=== PATIENT | male | born 2000 | race Caucasian/White ===

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

== ENCOUNTER 2020-02-26 12:48 | Emergency (ER) | payer BC ==
[2020-02-26 13:03] VITALS: BP 120/76
--- NOTE | 2020-02-26 13:29 | EDM.PDOC ---
ED HPI GENERAL MEDICAL PROBLEM - General Chief Complaint: Lower Extremity Injury/Pain Stated Complaint: HURT RT KNEE Time Seen by Provider: 02/26/20 12:50 Source of Information: Reports: Patient History Limitations: Reports: No Limitations - History of Present Illness INITIAL COMMENTS - FREE TEXT/NARRATIVE: 20-year-old male presents with right knee pain yesterday. She was playing basketball and landed on his right knee awkwardly and felt a pop, with acute pain. Pain is moderate, constant, radiates to the posterior calf and hamstrings, exacerbated with range of motion and weightbearing. Improved with immobilization. He has not been able to bear weight since. ROS: A 10-point review of systems, other than pertinent positives and negatives as stated per HPI, is otherwise negative Past medical history: No additional pertinent history Past Surgical history: No additional pertinent history Social history: No additional pertinent history Family history: No additional pertinent history PHYSICAL EXAM General: AOx4, GCS = 15, moderate distress HEENT: dry mucous membrane Neck: supple, no meningismus, no Kernig or Brudzinski Cardiac: S1S2 RRR Respiratory: CTAB, no crackles or rales, no wheezing Abdomen: Soft, nontender, no rebound or guarding, nondistended, no pulsatile mass. Back: nontender Musculoskeletal: NVI distally, no deformity, right knee joint line tenderness, with maximal tenderness to the medial joint line, negative Francois/anterior drawer sign/posterior drawer sign. Pain with valgus stress test. nml extensor mechanism. Neuro: No focal deficits Right knee Pain Score (Numeric/FACES): 9 - Related Data Allergies Allergy/AdvReac Type Severity Reaction Status Date / Time No Known Allergies Allergy Verified 02/26/20 13:01 Home Meds: Home Meds Naproxen [Naprosyn] 500 mg PO Q12HR #20 tab 02/26/20 [Rx] Past Medical History HEENT History: Reports: None Cardiovascular History: Reports: None Respiratory History: Reports: None Gastrointestinal History: Reports: None Genitourinary History: Reports: None Musculoskeletal History: Reports: None Neurological History: Reports: None Psychiatric History: Reports: Suicide Attempt Endocrine/Metabolic History: Reports: None Hematologic History: Reports: None Oncologic (Cancer) History: Reports: None Dermatologic History: Reports: None - Infectious Disease History Infectious Disease History: Reports: None - Past Surgical History HEENT Surgical History: Reports: Other (See Below) Social & Family History - Family History Family Medical History: Noncontributory - Tobacco Use Smoking Status *Q: Current Every Day Smoker Years of Tobacco use: 6 Packs/Tins Daily: 1 - Caffeine Use Caffeine Use: Reports: Coffee, Energy Drinks, Soda, Tea - Recreational Drug Use Recreational Drug Use: No Review of Systems - Review of Systems Review Of Systems: Comprehensive ROS is negative, except as noted in HPI. ED EXAM, GENERAL - Physical Exam Exam: See Below (see dictation) ED TRAUMA EXTREMITY PROCEDURES - Splinting Right Lower Extremity Pre-Procedure NV Status: Normal Post-Procedure NV Status: Normal Splint Design: Knee Immobilizer Applied & Form Fitted By: Nurse Provider Post-Splint Application NV Check: NV Status Normal, Good Position Complications: No Course - Vital Signs Last Recorded V/S: Last Vital Signs Temp 97.4 F 02/26/20 14:30 Pulse 68 02/26/20 14:30 Resp 18 02/26/20 14:30 BP 120/76 02/26/20 13:01 Pulse Ox 100 02/26/20 14:30 - Orders/Labs/Meds Orders: Active Orders 24 hr Category Date Time Status DME for Discharge [COMM] Stat Oth 02/26/20 13:29 Ordered - Re-Assessments/Exams Free Text/Narrative Re-Assessment/Exam: 02/26/20 13:31 Patient sustained a possible avulsion injury of the posterior tibial plateau. I ordered a knee immobilizer and crutches for the purpose of immobilization, placed by RN under my supervision with normal neurovascular function and soft compartments after placement. Patient will need to use it for 1 week, until their follow-up evaluation with orthopedics in 3-7 days. Patient voices understanding of follow-up and splint care which was reviewed verbally. After treatments and observation in the ER, patient improved clinically and is currently stable for discharge. I performed a repeat exam and did not appreciate new abnormal findings. Patient exhibits normal vital signs. I advised the patient to return to the ER for reevaluation if symptoms worsened, including fever, worsening pain, or any other worrisome symptoms. I instructed the patient to follow up with their orthopedics within 3-5 days. MEDICAL DECISION MAKING: I reviewed the patients past medical records, lab and radiographic findings. I discussed the case with the patient. My differential diagnosis included: The affected extremity demonstrated good distal perfusion, warm, pink, cap refill <2 seconds, compartments soft, pulses equal in both extremities. Patient understands to return immediately for worsening pain, swelling, fever, numbness/tingling or other concerns and to f/u with orthopedic within 3-5 days. Departure - Departure Time of Disposition: 14:10 Disposition: Home, Self-Care 01 Condition: Good Clinical Impression: Sprain of knee, Ligament tear of lower extremity - Discharge Information *PRESCRIPTION DRUG MONITORING PROGRAM REVIEWED*: Not Applicable *COPY OF PRESCRIPTION DRUG MONITORING REPORT IN PATIENT SHANA: Not Applicable Prescriptions: Naproxen [Naprosyn] 500 mg PO Q12HR #20 tab Instructions: Crutch Use, Adult, [id number], How to Use Cold Therapy, [id number], Elastic Bandage and RICE Therapy, How to Use a Knee Immobilizer, [id number] Referrals: PCP,Not In Area [Primary Care Provider] - Forms: ED Department Discharge Additional Instructions: The need for follow-up, as well as the timing and circumstances, are variable depending upon the specifics of your emergency department visit. If you don't have a primary care physician on staff, we will provide you with a referral. We always advise you to contact your personal physician following an emergency department visit to inform them of the circumstance of the visit and for follow-up with them and/or the need for any referrals to a consulting specialist. The emergency department will also refer you to a specialist when appropriate. This referral assures that you have the opportunity for follow-up care with a specialist. All of these measure are taken in an effort to provide you with optimal care, which includes your follow-up. Under all circumstances we always encourage you to contact your private physician who remains a resource for coordinating your care. When calling for follow-up care, please make the office aware that this follow-up is from your recent emergency room visit. If for any reason you are refused follow-up, please contact the [facility] Emergency Department at and asked to speak to the emergency department charge nurse. [facility] Professional Building [address] [place] [address], [address] [place] [address] Sepsis Event Note (ED) - Evaluation Sepsis Screening Result: No Definite Risk - Focused Exam Vital Signs: Vital Signs Temp Pulse Resp BP Pulse Ox 02/26/20 14:30 97.4 F 68 18 100 02/26/20 13:01 97.3 F 101 H 17 120/76 95 - My Orders Last 24 Hours: My Active Orders 02/26/20 13:29 DME for Discharge [COMM] Stat - Assessment/Plan Last 24 Hours: My Active Orders 02/26/20 13:29 DME for Discharge [COMM] Stat
--- NOTE | 2020-02-26 14:06 | CR ---
Right knee: AP, lateral, tunnel and sunrise patellar views of the right knee were obtained. Comparison: No prior knee exam. Medial and lateral joint compartments are maintained in height. Patellofemoral joint appears normal. No joint effusion is seen. Small bony density is noted off the posterior tibia possibly due to avulsion injury at the attachment of the posterior cruciate ligament. No additional abnormality is appreciated. Impression: 1. Small bony density off the posterior tibia possibly due to avulsion injury at the attachment of the posterior cruciate ligament. This is most likely old. 2. Nothing acute is otherwise seen. Note: Please correlate if patient symptoms suggest internal derangement to indicate MRI. Diagnostic code #3 This report was dictated in MDT
[2020-02-26 14:33] VITALS: PULSE 68
== END 2020-02-26 14:32 | disposition home or self-care (01) ==
LOC: MW.ED 12:48
DX: S83.91XA Sprain of unspecified site of right knee, initial encounter (principal); F17.210 Nicotine dependence, cigarettes, uncomplicated; Y93.67 Activity, basketball
CPT/HCPCS: 73562-26-RT; 73562-RT; 99283; 99283-25

== ENCOUNTER 2020-09-24 16:05 | Emergency (ER) | payer BC ==
--- NOTE | 2020-09-24 16:12 | EDM.PDOC ---
ED HPI GENERAL MEDICAL PROBLEM - General Chief Complaint: Lower Extremity Injury/Pain Stated Complaint: RIGHT KNEE INJURY Time Seen by Provider: 09/24/20 16:06 Source of Information: Reports: Patient History Limitations: Reports: No Limitations - History of Present Illness INITIAL COMMENTS - FREE TEXT/NARRATIVE: HISTORY AND PHYSICAL: History of present illness: Patient is a 20-year-old male who presents to the emergency room with complaints of right knee pain. He states a 6-7 months ago he had a knee injury in which she was seen in the emergency room. He since has had several instances where he feels like his knee will "pop out" and he can typically "put it back in". Over the past few days he has noted some pain with full extension of his knee, he believes his knee is "partly dislocated" although he is able to flex /extend and bear weight/ambulate. Patient denies any fever, chills, headache, change in vision, syncope or near syncope. Denies any chest pain, back pain, shortness of breath or cough. Denies any GI or symptoms. Patient has been eating and drinking appropriately. Review of systems: As per history of present illness and below otherwise all systems reviewed and negative. Past medical history: As per history of present illness and as reviewed below otherwise noncontributory. Surgical history: As per history of present illness and as reviewed below otherwise noncontributory. Social history: See social history for further information Family history: As per history of present illness and as reviewed below otherwise noncontributory. Physical exam: General: Well developed and well nourished 20-year-old male. Alert and orientated x 3. Nontoxic in appearance and in no acute distress. Vital signs are stable and have been reviewed by me. Nursing notes were reviewed. HEENT: Atraumatic, normocephalic, pupils equal and reactive bilaterally, negative for conjunctival pallor or scleral icterus, mucous membranes moist, trachea midline. No drooling or trismus noted. No meningeal signs. No hot potato voice noted. Lungs: Clear to auscultation bilaterally. No wheezes, rales, or rhonchi. Chest nontender. Normal work of breathing, no accessory muscles used. Heart: S1S2, regular rate and rhythm without overt murmur, gallops, or rubs. No JVD. No peripheral edema Abdomen: Soft, nondistended, nontender. Skin: Intact, warm, dry. No lesions or rashes noted. Hematologic: No petechiae or purpra. Mucosa appropriate color and normal nail bed color and refill. Extremities: Atraumatic, moves all extremities per self without difficulty or deficits, negative for cords or calf pain. Pain to left medial knee. No knee instability. Negative drawer test. Strong pedal pulses. No soft tissue swelling. Neurovascular unremarkable. Neuro: Awake, alert, oriented. Cranial nerves II through XII unremarkable. Cerebellum unremarkable. Motor and sensory unremarkable throughout. Exam nonfocal. Psychiatric: Mood and affect are appropriate. Normal thought process. Answering questions appropriately. Notes: *This patient was seen and evaluated during the 2019 SARS-CoV-2 novel coronavirus pandemic period. Community viral transmission is ongoing at time of this encounter and the emergency department is operating under pandemic response procedures. X-ray is negative for acute fracture or dislocation. Mild joint space narrowing medially. I have talked with the patient about today's findings, in addition to providing specific details for plan of care. Patient states he has knee braces and crutches at home, declines wanting any DME today. We discussed the importance of following up with an orthopedic provider for further evaluation of this acute on chronic knee pain that he has had for the past 6 to 7 months. He reassessment at the time of disposition demonstrates that the patient is in no acute distress. The patient is stable for discharge, counseling was provided and we discussed in great detail signs and symptoms that would prompt them to return to the Emergency Department. Medication, follow up and supportive care measures were reviewed and discussed. Voices understanding and is agreeable to plan of care. Denies any further questions or concerns at this time. Diagnostics: Knee x-ray Therapeutics: Toradol Prescription: Diclofenac Impression: Knee pain, right Plan: 1. Rest, ice, elevate the affected extremity. Please wear the splint as directed. 2. Tylenol and/or Ibuprofen as needed for pain management. 3. Follow up with the Orthopedic provider as we discussed. Return to the ED as needed and as discussed. Definitive disposition and diagnosis as appropriate pending reevaluation and review of above. Right knee Pain Score (Numeric/FACES): 5 - Related Data Allergies Allergy/AdvReac Type Severity Reaction Status Date / Time No Known Allergies Allergy Verified 02/26/20 13:01 Home Meds: Home Meds Diclofenac Sodium [Voltaren] 75 mg PO BIDMEALS PRN #30 tab.cr 09/24/20 [Rx] Escitalopram [Lexapro] 09/24/20 [History] buPROPion [Wellbutrin] 09/24/20 [History] lamoTRIgine 09/24/20 [History] Past Medical History HEENT History: Reports: None Cardiovascular History: Reports: None Respiratory History: Reports: None Gastrointestinal History: Reports: None Genitourinary History: Reports: None Musculoskeletal History: Reports: None Neurological History: Reports: None Psychiatric History: Reports: Suicide Attempt Endocrine/Metabolic History: Reports: None Hematologic History: Reports: None Oncologic (Cancer) History: Reports: None Dermatologic History: Reports: None - Infectious Disease History Infectious Disease History: Reports: None - Past Surgical History HEENT Surgical History: Reports: Other (See Below) Social & Family History - Family History Family Medical History: No Pertinent Family History - Caffeine Use Caffeine Use: Reports: Coffee, Energy Drinks, Soda, Tea Review of Systems - Review of Systems Review Of Systems: Comprehensive ROS is negative, except as noted in HPI. ED EXAM, GENERAL - Physical Exam Exam: See Below (See dictation) Course - Vital Signs Last Recorded V/S: Last Vital Signs Temp 98.0 F 09/24/20 16:35 Pulse 68 09/24/20 16:35 Resp 16 09/24/20 16:35 BP 105/68 09/24/20 16:35 Pulse Ox 98 09/24/20 16:35 - Orders/Labs/Meds Meds: Medications Discontinued Medications Generic Name Dose Route Start Last Admin Trade Name Ashley PRN Reason Stop Dose Admin Ketorolac Tromethamine 60 mg 09/24/20 17:22 Toradol IM 09/24/20 17:23 ONETIME ONE Departure - Departure Time of Disposition: 17:44 Disposition: Home, Self-Care 01 Clinical Impression: Knee pain Qualifiers: Chronicity: unspecified Laterality: right Qualified Code(s): M25.561 - Pain in right knee - Discharge Information Prescriptions: Diclofenac Sodium [Voltaren] 75 mg PO BIDMEALS PRN #30 tab.cr PRN Reason: Pain Instructions: Acute Knee Pain, Adult Referrals: PCP,None [Primary Care Provider] - Forms: ED Department Discharge Additional Instructions: The following information is given to patients seen in the emergency department who are being discharged to home. This information is to outline your options for follow-up care. We provide all patients seen in our emergency department with a follow-up referral. The need for follow-up, as well as the timing and circumstances, are variable depending upon the specifics of your emergency department visit. If you don't have a primary care physician on staff, we will provide you with a referral. We always advise you to contact your personal physician following an emergency department visit to inform them of the circumstance of the visit and for follow-up with them and/or the need for any referrals to a consulting specialist. The emergency department will also refer you to a specialist when appropriate. This referral assures that you have the opportunity for follow-up care with a specialist. All of these measure are taken in an effort to provide you with optimal care, which includes your follow-up. Under all circumstances we always encourage you to contact your private physician who remains a resource for coordinating your care. When calling for follow-up care, please make the office aware that this follow-up is from your recent emergency room visit. If for any reason you are refused follow-up, please contact the [facility] Emergency Department at and asked to speak to the emergency department charge nurse. [facility] [address], [facility] [address] [place] [address] Thank you for choosing the [facility] emergency department in [place] for your medical needs today. It was a pleasure caring for you. Today you were seen in the emergency department for knee pain. 1. Rest, ice, elevate the affected extremity. Please wear the splint and use crutches as directed. 2. Tylenol and/or Ibuprofen as needed for pain management. 3. Follow up with the Orthopedic provider as we discussed. Return to the ED as needed and as discussed. Sepsis Event Note (ED) - Focused Exam Vital Signs: Vital Signs Temp Pulse Resp BP Pulse Ox 09/24/20 16:35 98.0 F 68 16 105/68 98
[2020-09-24 16:37] VITALS: BP 105/68; PULSE 68
[2020-09-24] MEDS ORDERED: Ketorolac 60 MG/2 ML SDV IM ONE (17:22)
--- NOTE | 2020-09-24 17:33 | CR ---
INDICATION: Right knee pain, query dislocation. TECHNIQUE: X-ray right knee, 3 views. COMPARISON: X-ray right knee 02/26/2020. FINDINGS: The alignment is normal. There is mild joint space narrowing within the medial compartment with marginal osteophytes. The overlying soft tissues unremarkable. Negative for acute fracture dislocation. No knee joint effusion is seen. IMPRESSION: 1. Negative for acute fracture or dislocation. 2. Mild joint space narrowing medially. Dictated by Carol Poole MD @ Sep 24 2020 5:29PM Signed by Dr. Carol Poole @ Sep 24 2020 5:31PM
== END 2020-09-24 18:03 | disposition home or self-care (01) ==
LOC: MW.ED 16:05
DX: M25.561 Pain in right knee (principal)
CPT/HCPCS: 73562; 96372; 99283; J1885

== ENCOUNTER 2020-10-12 08:55 | Emergency (ER) | payer BC ==
[2020-10-12] MEDS ORDERED: Sodium Chloride 0.9% 1,000 ML IV ONE (09:32)
[2020-10-12] MEDS ORDERED: Ondansetron 4 MG/2 ML SDV IVPUSH ONE (09:33)
--- NOTE | 2020-10-12 09:36 | EDM.PDOC ---
ED HPI GENERAL MEDICAL PROBLEM - General Chief Complaint: Gastrointestinal Problem Stated Complaint: throwing up bleed Time Seen by Provider: 10/12/20 09:34 Source of Information: Reports: Patient History Limitations: Reports: No Limitations - History of Present Illness INITIAL COMMENTS - FREE TEXT/NARRATIVE: Is a 20-year-old male who presents today for vomiting. Patient dates he is been vomiting for the past few years actually but today he saw some bright red blood and now has a dark black color in his vomit. Patient states that he feels he has some stuck in his chest. Patient denies any weakness fever chills or blood in his stool. Patient denies any drugs or alcohol recently. Patient dates that since he was diagnosed with he does also sometimes been having daily dry heaves or vomiting spells. throat Pain Score (Numeric/FACES): 6 - Related Data Allergies Allergy/AdvReac Type Severity Reaction Status Date / Time No Known Allergies Allergy Verified 10/12/20 09:19 Home Meds: Home Meds Diclofenac Sodium [Voltaren] 75 mg PO BIDMEALS PRN #30 tab.cr 09/24/20 [Rx] Escitalopram [Lexapro] 09/24/20 [History] buPROPion [Wellbutrin] 09/24/20 [History] lamoTRIgine 09/24/20 [History] Past Medical History HEENT History: Reports: None Cardiovascular History: Reports: None Respiratory History: Reports: None Gastrointestinal History: Reports: None Genitourinary History: Reports: None Musculoskeletal History: Reports: None Neurological History: Reports: None Psychiatric History: Reports: Addiction, Anxiety, Depression, Suicide Attempt Endocrine/Metabolic History: Reports: None Hematologic History: Reports: None Oncologic (Cancer) History: Reports: None Dermatologic History: Reports: None - Infectious Disease History Infectious Disease History: Reports: None - Past Surgical History HEENT Surgical History: Reports: Other (See Below) Other HEENT Surgeries/Procedures: h/o tubes to bilateral ear Social & Family History - Family History Family Medical History: No Pertinent Family History - Tobacco Use Tobacco Use Status *Q: Former Tobacco User Years of Tobacco use: 6 Packs/Tins Daily: 1 Used Tobacco, but Quit: Yes Month/Year Tobacco Last Used: 2 weeks ago - Caffeine Use Caffeine Use: Reports: Coffee, Energy Drinks, Soda - Recreational Drug Use Recreational Drug Use: Yes Drug Use in Last 12 Months: Yes Recreational Drug Type: Reports: Ecstasy, Marijuana/Hashish, Other (see below) Other Recreational Drug Type: Adderall Recreational Drug Use Frequency: Weekly ED ROS GENERAL - Review of Systems Review Of Systems: See Below Constitutional: Reports: No Symptoms HEENT: Reports: No Symptoms Respiratory: Reports: No Symptoms Cardiovascular: Reports: No Symptoms Endocrine: Reports: No Symptoms GI/Abdominal: Reports: Vomiting : Reports: No Symptoms Musculoskeletal: Reports: No Symptoms Skin: Reports: No Symptoms Neurological: Reports: No Symptoms Psychiatric: Reports: No Symptoms Hematologic/Lymphatic: Reports: No Symptoms Immunologic: Reports: No Symptoms ED EXAM, GI/ABD - Physical Exam Exam: See Below Exam Limited By: No Limitations General Appearance: Alert, WD/WN Eyes: Bilateral: EOMI Respiratory/Chest: No Respiratory Distress, Lungs Clear, Normal Breath Sounds Cardiovascular: Normal Peripheral Pulses, Regular Rate, Rhythm GI/Abdominal Exam: Normal Bowel Sounds, Soft, Non-Tender Extremities: Normal Inspection, Normal Range of Motion Neurological: Alert, Oriented, CN II-XII Intact, Normal Cognition, Normal Gait Course - Vital Signs Last Recorded V/S: Last Vital Signs Temp 98.5 F 10/12/20 12:44 Pulse 121 H 10/12/20 12:44 Resp 18 10/12/20 12:44 BP 129/87 10/12/20 12:44 Pulse Ox 99 10/12/20 12:44 - Orders/Labs/Meds Orders: Active Orders 24 hr Category Date Time Status Communication Order [RC] STAT Care 10/12/20 10:12 Active Labs: Laboratory Tests 10/12/20 10/12/20 10/12/20 Range/Units 09:33 09:33 09:33 WBC 19.38 H (4.0-11.0) K/uL RBC 6.17 H (4.50-5.90) M/uL Hgb 17.8 H (13.0-17.0) g/dL Hct 50.5 H (38.0-50.0) % MCV 81.8 (80.0-98.0) fL MCH 28.8 (27.0-32.0) pg MCHC 35.2 (31.0-37.0) g/dL RDW Std Deviation 37.7 (28.0-62.0) fl RDW Coeff of Damon 13 (11.0-15.0) % Plt Count 331 (150-400) K/uL MPV 9.80 (7.40-12.00) fL Neut % (Auto) 80.8 H (48.0-80.0) % Lymph % (Auto) 11.0 L (16.0-40.0) % [place] % (Auto) 7.9 (0.0-15.0) % Eos % (Auto) 0.2 (0.0-7.0) % Baso % (Auto) 0.1 (0.0-1.5) % Neut # (Auto) 15.7 H (1.4-5.7) K/uL Lymph # (Auto) 2.1 (0.6-2.4) K/uL [place] # (Auto) 1.5 H (0.0-0.8) K/uL Eos # (Auto) 0.0 (0.0-0.7) K/uL Baso # (Auto) 0.0 (0.0-0.1) K/uL Nucleated RBC % 0.0 /100WBC Nucleated RBCs # 0 K/uL D-Dimer, Quantitative < 0.19 (0.0-0.50) mg/L FEU Lactate (0.20-2.00) mmol/L Sodium 138 (136-148) mmol/L Potassium 3.8 (3.5-5.1) mmol/L Chloride 100 (98-107) mmol/L Carbon Dioxide 23.9 (21.0-32.0) mmol/L BUN 14 (7.0-18.0) mg/dL Creatinine 1.4 H (0.8-1.3) mg/dL Est Cr Clr Drug Dosing 93.53 mL/min Estimated GFR (MDRD) > 60.0 ml/min Glucose 105 (74-106) mg/dL Calcium 10.0 (8.5-10.1) mg/dL Phosphorus 2.1 L (2.6-4.7) mg/dL Magnesium 1.8 (1.8-2.4) mg/dL Total Bilirubin 1.1 H (0.2-1.0) mg/dL AST 34 (15-37) IU/L ALT 42 (14-63) IU/L Alkaline Phosphatase 73 (46-116) U/L Creatine Kinase 218 (26-308) U/L Total Protein 8.5 H (6.4-8.2) g/dL Albumin 4.4 (3.4-5.0) g/dL Globulin 4.1 H (2.6-4.0) g/dL Albumin/Globulin Ratio 1.1 (0.9-1.6) Lipase 59 L (73-393) U/L Urine Color Urine Appearance Urine pH (5.0-8.0) Ur Specific [place] (1.001-1.035) Urine Protein (NEGATIVE) mg/dL Urine Glucose (UA) (NEGATIVE) mg/dL Urine Ketones (NEGATIVE) mg/dL Urine Occult Blood (NEGATIVE) Urine Nitrite (NEGATIVE) Urine Bilirubin (NEGATIVE) Urine Ictotest Urine Urobilinogen (<2.0) EU/dL Ur Leukocyte Esterase (NEGATIVE) Urine RBC (0-2/HPF) Urine WBC (0-5/HPF) Ur Epithelial Cells (NONE-FEW) Amorphous Sediment (NEGATIVE) Urine Bacteria (NEGATIVE) Urine Mucus (NONE-MOD) Urine Opiates Screen (NEGATIVE) Ur Oxycodone Screen (NEGATIVE) Urine Methadone Screen (NEGATIVE) Ur Barbiturates Screen (NEGATIVE) Ur Phencyclidine Scrn (NEGATIVE) Ur Amphetamine Screen (NEGATIVE) U Methamphetamines Scrn (NEGATIVE) U Benzodiazepines Scrn (NEGATIVE) U Cocaine Metab Screen (NEGATIVE) U Marijuana (THC) Screen (NEGATIVE) Ethyl Alcohol < 3.0 mg/dL 10/12/20 10/12/20 10/12/20 Range/Units 09:33 12:08 12:08 WBC (4.0-11.0) K/uL RBC (4.50-5.90) M/uL Hgb (13.0-17.0) g/dL Hct (38.0-50.0) % MCV (80.0-98.0) fL MCH (27.0-32.0) pg MCHC (31.0-37.0) g/dL RDW Std Deviation (28.0-62.0) fl RDW Coeff of Damon (11.0-15.0) % Plt Count (150-400) K/uL MPV (7.40-12.00) fL Neut % (Auto) (48.0-80.0) % Lymph % (Auto) (16.0-40.0) % [place] % (Auto) (0.0-15.0) % Eos % (Auto) (0.0-7.0) % Baso % (Auto) (0.0-1.5) % Neut # (Auto) (1.4-5.7) K/uL Lymph # (Auto) (0.6-2.4) K/uL [place] # (Auto) (0.0-0.8) K/uL Eos # (Auto) (0.0-0.7) K/uL Baso # (Auto) (0.0-0.1) K/uL Nucleated RBC % /100WBC Nucleated RBCs # K/uL D-Dimer, Quantitative (0.0-0.50) mg/L FEU Lactate 2.1 H* (0.20-2.00) mmol/L Sodium (136-148) mmol/L Potassium (3.5-5.1) mmol/L Chloride (98-107) mmol/L Carbon Dioxide (21.0-32.0) mmol/L BUN (7.0-18.0) mg/dL Creatinine (0.8-1.3) mg/dL Est Cr Clr Drug Dosing mL/min Estimated GFR (MDRD) ml/min Glucose (74-106) mg/dL Calcium (8.5-10.1) mg/dL Phosphorus (2.6-4.7) mg/dL Magnesium (1.8-2.4) mg/dL Total Bilirubin (0.2-1.0) mg/dL AST (15-37) IU/L ALT (14-63) IU/L Alkaline Phosphatase (46-116) U/L Creatine Kinase (26-308) U/L Total Protein (6.4-8.2) g/dL Albumin (3.4-5.0) g/dL Globulin (2.6-4.0) g/dL Albumin/Globulin Ratio (0.9-1.6) Lipase (73-393) U/L Urine Color YELLOW Urine Appearance CLEAR Urine pH 6.5 (5.0-8.0) Ur Specific [place] 1.025 (1.001-1.035) Urine Protein TRACE H (NEGATIVE) mg/dL Urine Glucose (UA) NEGATIVE (NEGATIVE) mg/dL Urine Ketones >=80 (NEGATIVE) mg/dL Urine Occult Blood NEGATIVE (NEGATIVE) Urine Nitrite NEGATIVE (NEGATIVE) Urine Bilirubin SMALL H (NEGATIVE) Urine Ictotest NEGATIVE Urine Urobilinogen 0.2 (<2.0) EU/dL Ur Leukocyte Esterase NEGATIVE (NEGATIVE) Urine RBC NONE SEEN (0-2/HPF) Urine WBC 2-4 (0-5/HPF) Ur Epithelial Cells RARE (NONE-FEW) Amorphous Sediment FEW (NEGATIVE) Urine Bacteria FEW (NEGATIVE) Urine Mucus MODERATE (NONE-MOD) Urine Opiates Screen NEGATIVE (NEGATIVE) Ur Oxycodone Screen NEGATIVE (NEGATIVE) Urine Methadone Screen NEGATIVE (NEGATIVE) Ur Barbiturates Screen NEGATIVE (NEGATIVE) Ur Phencyclidine Scrn NEGATIVE (NEGATIVE) Ur Amphetamine Screen POSITIVE (NEGATIVE) U Methamphetamines Scrn POSITIVE (NEGATIVE) U Benzodiazepines Scrn NEGATIVE (NEGATIVE) U Cocaine Metab Screen NEGATIVE (NEGATIVE) U Marijuana (THC) Screen NEGATIVE (NEGATIVE) Ethyl Alcohol mg/dL Meds: Medications Discontinued Medications Generic Name Dose Route Start Last Admin Trade Name Marcq PRN Reason Stop Dose Admin Al Hydroxide/Mg Hydroxide 15 0 ml 10/12/20 10:50 10/12/20 11:28 ml/ Lidocaine HCl 5 ml PO 10/12/20 10:51 20 each ONETIME ONE Administration Sodium Chloride 1,000 mls @ 999 mls/hr 10/12/20 09:32 10/12/20 09:54 Normal Saline IV 10/12/20 10:32 999 mls/hr .BOLUS ONE Administration Piperacillin Sod/Tazobactam 50 mls @ 100 mls/hr 10/12/20 12:16 10/12/20 13:00 Sod 3.375 gm/ Sodium Chloride IV 10/12/20 12:45 100 mls/hr ONETIME ONE Administration Ondansetron HCl 4 mg 10/12/20 09:33 10/12/20 09:55 Ondansetron 4 Mg/2 Ml Sdv IVPUSH 10/12/20 09:34 4 mg ONETIME ONE Administration - Re-Assessments/Exams Free Text/Narrative Re-Assessment/Exam: 10/12/20 12:31 Radiology: Patient likely has pneumomediastinum. Patient made aware and given IV antibiotics. We do not have a barium swallow here will transfer patient for [facility] evaluation to [facility]. 10/12/20 14:45 Patient tachycardia likely due to pain and dehydration. Patient white count of elevation is likely due to his retching and vomiting. Patient states sepsis criteria but is not sepsis. Will give antibiotics doses patient may have a esophageal tear prophylactically. Departure - Departure Time of Disposition: 12:31 Disposition: DC/Tfer to [facility] 02 Condition: Good Clinical Impression: Boerhaave syndrome - Discharge Information *PRESCRIPTION DRUG MONITORING PROGRAM REVIEWED*: Not Applicable *COPY OF PRESCRIPTION DRUG MONITORING REPORT IN PATIENT SHANA: Not Applicable Referrals: PCP,None [Primary Care Provider] - Forms: ED Department Discharge Sepsis Event Note (ED) - Evaluation Sepsis Screening Result: No Definite Risk - Focused Exam Vital Signs: Vital Signs Temp Pulse Resp BP Pulse Ox 10/12/20 12:44 98.5 F 121 H 18 129/87 99 10/12/20 11:05 98.2 F 132 H 19 139/79 96 10/12/20 09:14 98 F 97 20 129/80 96 - My Orders Last 24 Hours: My Active Orders 10/12/20 10:12 Communication Order [RC] STAT - Assessment/Plan Last 24 Hours: My Active Orders 10/12/20 10:12 Communication Order [RC] STAT Plan: Patient is a 20-year-old male who presents today for vomiting and dark-colored blood. Patient has been maintaining his airway speaking clearly. Will obtain labs IV fluid and reassess.
[2020-10-12 10:04] LABS: BLOOD UREA NITROGEN,BUN 14 mg/dL (7.0-18.0); CARBON DIOXIDE,CO2 23.9 mmol/L (21.0-32.0); CHLORIDE,CL 100 mmol/L (98-107); GLUCOSE RANDOM 105 mg/dL (74-106); LIPASE 59 U/L (73-393); POTASSIUM,K 3.8 mmol/L (3.5-5.1); SODIUM,NA 138 mmol/L (136-148)
[2020-10-12] MEDS ORDERED: Alum Hydrox/Mag Hydrox/Simeth 15 ML, Lidocaine 2% 5 ML PO ONE ×2 (10:50)
--- NOTE | 2020-10-12 12:03 | CR ---
INDICATION: Possible foreign body TECHNIQUE: PA and Lateral views soft tissue neck COMPARISON: None available. FINDINGS: The airway is patent without significant focal effacement. The epiglottis is normal in size and configuration. There is extensive emphysema and thickening of the prevertebral soft tissues. The cervical vertebral body heights are grossly maintained without acute osseus abnormality. IMPRESSION: Demonstration of extensive emphysema and thickening of the prevertebral soft tissues likely representing esophageal perforation with demonstration of pneumomediastinum. No evidence of radiopaque object is appreciated. Findings were discussed with Rubio Duncan at 12 p.m. October 12, 2020 Dictated by Tristian Segovia MD @ Oct 12 2020 11:55AM Signed by Dr. Tristian Segovia @ Oct 12 2020 12:02PM
--- NOTE | 2020-10-12 12:04 | CR ---
Indication: Vomiting blood possible foreign body history of retching Comparison: None available. Technique: PA and Lateral views chest Findings: There is no focal consolidation, effusion, or pneumothorax. There is demonstration of moderate pneumomediastinum with subcutaneous air extending into the thoracic inlet. There is no pneumothorax. The bony thorax is grossly intact. Impression: Demonstration of moderate pneumomediastinum without evidence of radiopaque foreign body or pneumothorax. With history of chronic vomiting and retching there is concern for a Boerhaave syndrome. Findings were discussed with Dr. Duncan at 12 p.m. on October 12, 2020 Dictated by Tristian Segovia MD @ Oct 12 2020 11:56AM Signed by Dr. Tristian Segovia @ Oct 12 2020 12:04PM
[2020-10-12] MEDS ORDERED: Piperacillin/Tazobactam 3.375 GM in Sodium Chloride 0.9% 50 ML IV ONE (12:16)
[2020-10-12 14:45] VITALS: BP 129/81; PULSE 126
== END 2020-10-12 14:05 ==
LOC: MW.ED 08:55
DX: K22.3 Perforation of esophagus (principal); Z87.891 Personal history of nicotine dependence
CPT/HCPCS: 36415; 70360; 71046; 80053; 80305; 80307; 81001; 82550; 83605; 83690; 83735; 84100; 85025; 85379; 96365; 96375; 99285; A9270; J2405; J2543; J7030

== ENCOUNTER 2022-12-31 12:47 | Emergency (ER) | payer OTHER, BC ==
[2022-12-31 14:19] VITALS: BP 135/82; PULSE 92
== END 2022-12-31 14:11 ==
LOC: MW.ED 12:47
DX: Z02.89 Encounter for other administrative examinations (principal); V89.2XXA Person injured in unspecified motor-vehicle accident, traffic, initial encounter; Y92.410 Unspecified street and highway as the place of occurrence of the external cause
CPT/HCPCS: 99282; 99284

== ENCOUNTER 2025-05-31 01:09 | Emergency (ER) | payer BC, OTHER ==
[2025-05-31] MEDS: Ondansetron 4 MG/2 ML SDV IVPUSH ONE (01:27)
[2025-05-31 01:31] LABS: BASOPHILS ABSOLUTE AUTO 0.04 K/uL (0.00-0.20); BASOPHILS PERCENT AUTO 0.4 % (0.0-1.0); EOSINOPHILS ABSOLUTE AUTO 0.16 K/uL (0.00-0.45); EOSINOPHILS PERCENT AUTO 1.7 % (0.0-6.0); IMMATURE GRAN ABSOLUTE AUTO 0.03 K/uL (0.00-0.05); IMMATURE GRAN PERCENT AUTO 0.3 % (0.0-0.4); LYMPHOCYTES ABSOLUTE AUTO 3.03 K/uL (1.00-4.80); LYMPHOCYTES PERCENT AUTO 32.3 % (24.0-44.0); MEAN PLATELET VOLUME 9.9 fL (9.4-12.4); MONOCYTES ABSOLUTE AUTO 1.09 K/uL (0.00-0.80); MONOCYTES PERCENT AUTO 11.6 % (0.0-8.0); NEUTROPHILS ABSOLUTE AUTO 5.04 K/uL (1.80-7.70); NEUTROPHILS PERCENT AUTO 53.7 % (41.0-71.0); NRBC ABSOLUTE 0.00 K/uL (0.00-0.02); NRBC PERCENT 0.0 /100WBC (0.0-0.2); PLATELET COUNT,PLT 249 K/uL (150-400); RED BLOOD CELL COUNT 5.17 M/uL (4.52-5.90); WHITE BLOOD CELL COUNT,WBC 9.39 K/uL (3.9-11.3)
[2025-05-31 01:41] LABS: INR 1.07 (0.86-1.11)
[2025-05-31 01:51] LABS: A/G RATIO 1.3 (0.9-1.6); ALANINE AMINOTRANSFERASE,ALT 33.0 IU/L (14-63); ASPARTATE AMNIOTRANSFERASE,AST 34.0 IU/L (15-37); BILIRUBIN TOTAL 0.3 mg/dL (0.2-1.0); BLOOD UREA NITROGEN,BUN 13.0 mg/dL (7.0-18.0); CARBON DIOXIDE,CO2 29.3 mmol/L (21.0-32.0); CHLORIDE,CL 105.0 mmol/L (98-107); CREATININE 1.1 mg/dL (0.8-1.3); EST CRCL DRUG DOSING (CG) 107.44 mL/min; ESTIMATED GFR 94.0 mL/min (>60); ETHANOL BLOOD MEDICAL 60.0 mg/dL; GLUCOSE RANDOM 85.0 mg/dL (74-106); POTASSIUM,K 3.6 mmol/L (3.5-5.1); PROTEIN TOTAL,TP 6.9 g/dL (6.4-8.2); SODIUM,NA 143.0 mmol/L (136-148)
[2025-05-31] MEDS: Iopamidol 755 MG/ML 500 ML Multipack Bottle IVPUSH ONE (02:21)
[2025-05-31 02:43] VITALS: BP 125/78; PULSE 77
== END 2025-05-31 02:48 | disposition home or self-care (01) ==
LOC: MW.ED 01:09
DX: S16.1XXA Strain of muscle, fascia and tendon at neck level, initial encounter (principal); S09.90XA Unspecified injury of head, initial encounter; Z75.3 Unavailability and inaccessibility of health-care facilities; V89.2XXA Person injured in unspecified motor-vehicle accident, traffic, initial encounter
CPT/HCPCS: 36415; 70450; 71260; 72125; 74177; 80053; 80307; 85025; 85610; 96361; 96374; 99285; J2405; J7030; Q9967; 99283